=== PATIENT | female | born 1960 | race African-American/Black ===

== ENCOUNTER 2017-07-16 10:38 | Emergency (ER) | payer MEDICARE, MEDICAID ==
[2017-07-16 11:31] LABS: #Neutrophils 11.8 thou/uL (1.40-6.50); %Basophils 0.1 % (0.0-1.0); %Eosinophils 0.2 % (0.0-10.0); %Lymphocytes 13.5 % (21.0-51.0); %Monocytes 6.5 % (0.0-10.0); Hematocrit 44.2 % (36.0-47.0); Mean Platelet Volume 9.9 fL (7.4-10.4); Red Blood Cell (RBC) Count 4.62 mill/uL (4.20-5.40); White Blood Cell (WBC) Count 14.8 thou/uL (4.8-10.8)
[2017-07-16 11:53] LABS: Troponin I Less than 0.010 ng/mL (< 0.028)
[2017-07-16 11:54] LABS: ALT (SGPT) 14 U/L (8-55); AST (SGOT) 24 U/L (5-34); Alkaline Phosphatase 100 U/L (40-150); Anion Gap 14 mmol/L (10-20); BUN (Urea Nitrogen) 21 mg/dL (9.8-20.1); Bilirubin, Total 0.7 mg/dL (0.2-1.2); Calc. Creatinine Clearance 0 mL/min (70-130); Calcium 10.1 mg/dL (7.8-10.44); Carbon Dioxide 23 mmol/L (22-29); Chloride 105 mmol/L (98-107); Estimated GFR-MDRD 75; Globulin 4.3 g/dL (2.4-3.5); Lipase 7 U/L (8-78); Protein, Total 8.6 g/dL (6.0-8.3)
[2017-07-16] MEDS ORDERED: Fentanyl 100 MCG/2 ML VIAL ONE (12:04)
--- NOTE | 2017-07-16 13:11 | CT ---
CT ABDOMEN AND PELVIS WITHOUT CONTRAST: Technique: Multiple axial tomograms were obtained through the abdomen and pelvis without IV enhanceme nt. History: Left flank pain. Comparison: CT abdomen and pelvis, November 2003. FINDINGS: Lung bases clear. The liver, spleen, and pancreas unremarkable. Adrenal glands normal. There is left hydronephrosis. There is a calculus in the left mid left ureter. This may represent two adjacent small calculi. The current images show evidence of a separation or cleft. The current measu rement in the coronal plane is approximately 8 mm craniocaudal dimension. There is another smaller ca lculus in the left pelvis which lies adjacent to the distal left ureter. This is favored to lie outsi de the left ureter. This tiny calculus measures approximately 3 mm. The right kidney reveals a large calculus in the upper pole collecting structures measuring approxima tely 1.2 cm. There are at least two other calcifications in the upper pole collecting structures on t he right measuring approximately 5 mm. The right ureter appears normal. The small bowel loops are normal in appearance. Colon is unremarkable. Aorta is normal caliber. Image s through the pelvis reveal a prominent uterus. A uterine fibroid was described on the prior contrast ed scan. IMPRESSION: 1. Calculus in the mid left ureter producing left hydronephrosis. This may actually represent two adj acent smaller calculi, however, the overall measurement is 8 mm. 2. There are nonobstructing calculi in the upper collecting structures of the right kidney. POS: [facility]
--- NOTE | 2017-07-16 13:12 | RAD ---
PORTABLE CHEST: History: Abdominal pain. Comparison: 04-16-15 FINDINGS: The lungs are clear. Heart and mediastinum appear normal. Vascular markings normal. IMPRESSION: No acute finding. POS: [facility]
[2017-07-16] MEDS ORDERED: Ketorolac Tromethamine 30 MG/ML VIAL ONE (13:22)
[2017-07-16 13:36] LABS: Bilirubin Negative (Negative); Blood, Urine Moderate (Negative); Glucose, Urine (Dipstick) Negative (Negative); Ketone, Urine Trace mg/dL (Negative); Nitrite Negative (Negative); Protein, Urine (Dipstick) 300 mg/dL (Neg-Trace)
[2017-07-16 13:37] LABS: Bacteria/HPF 1+ HPF (None Seen); Hyaline Casts/LPF 0-3 HYALINE CAST LPF (0-3 Hyaline); RBC/HPF 21-50 HPF (0-3)
[2017-07-16] MEDS ORDERED: Dexamethasone 20 MG/5 ML VIAL ONE (15:21)
[2017-07-16] MEDS ORDERED: Propofol 200 MG/20 ML VIAL ONE (15:21)
[2017-07-16] MEDS ORDERED: Ondansetron HCl/PF 4 MG/2 ML Vial ONE (15:21)
--- NOTE | 2017-07-16 19:23 | CON ---
DATE OF CONSULTATION: 07/16/2017 REASON FOR CONSULTATION: Left-sided flank pain, right renal stone, left ureteral stone. HISTORY OF PRESENT ILLNESS: Mr. Mason is a 56-year-old female who presented to the emergency room w ith severe acute left-sided flank pain. She has a significant prior history including several stroke s. She has known hypertension. She was worked up for possible FL which did not demonstrate an FL. She underwent CT scanning which demonstrated a 1.2 cm stone in the right kidney and an 8 mm stone in the left mid ureter with left side hydronephrosis. However, pain was on the left side. She did have some nausea and vomiting. She did not have any fevers or chills. She denies any dysuria. She has not been treated for stones in the past. PAST MEDICAL HISTORY: Hypertension, hypercholesterolemia, CVA x3, obesity. PAST SURGICAL HISTORY: None. ALLERGIES: No known drug allergies. MEDICATIONS: Aspirin and clonidine 0.1 mg b.i.d. SOCIAL HISTORY: She drinks alcohol on a social basis. She denies drug use. She used to smoke cigar ettes, thus she states she quit smoking last year. REVIEW OF SYSTEMS: Respiratory: No shortness of breath. Cardiovascular: No chest pain. Gastrointestinal: Denies chr onic constipation, diarrhea. Genitourinary: Please see history of present illness. Neurologic: No recent alteration in sensation or any new signs of numbness. IMAGING STUDIES: CT scan demonstrates 1.2 cm stone in right renal pelvis, 8 mm stone in left mid ure ter. Laboratory urine reveals 4-6 red blood cells, 21-50 white blood cells. Creatinine 0.93. Sodiu m 138, potassium 4.3, chloride 105, CO2 of 23, BUN 21, creatinine 0.93, glucose 107. IMPRESSION: Ms. Mason is a 56-year-old female with bilateral stone disease. She has a left uretera l stone resulting in ureteral obstruction and left side hydronephrosis and pain. Recommend ureteral stenting to relieve obstruction of the left kidney. The procedure and potential limitations, alterna tives, and complications have been discussed with her. She does wish to proceed. PLAN: Cystoscopy and left double-J stent placement.
--- NOTE | 2017-07-16 21:32 | RAD ---
RETROGRADE UROGRAM 07/16/17 PROVIDED CLINICAL HISTORY: Renal stone. FINDINGS: Comparison CT examination earlier same date. Interval placement of a left ureteral stent. Proximal coil overlying expected location of the left re nal pelvis and distal coil overlying expected location of urinary bladder. Contrast material is seen within partially opacified left renal collecting system. Right renal calculus is again seen. IMPRESSION: As above. POS: [facility]
--- NOTE | 2017-07-16 21:50 | OP ---
DATE OF PROCEDURE: 07/16/2017 DIAGNOSES: Right renal stone and left ureteral stone. PROCEDURES PERFORMED: Cystoscopy, left double-J stent placement. SURGEON: Dr. Yoon. ANESTHESIA: General. INDICATIONS: Ms. Mason presented to the emergency room with a severe left-sided flank pain. Imagin g revealed a nonobstructing 12 mm right renal stone and a 7-8 mm obstructing left mid ureteral stone. She was brought to the operating room for left ureteral stent placement. DETAILS OF PROCEDURE: The patient was given general anesthesia and IV antibiotics. She was sterilel y prepped and draped in the lithotomy position. A cystoscope was passed into the bladder and the juni dder was examined in its entirety. There were no mucosal lesions. Both ureteral orifices appeared n ormal with clear efflux. Left ureteral orifice was intubated with a floppy tip guidewire, which pass ed cephalad under fluoroscopic control. Retrograde pyelography was performed demonstrating left mid ureteral stone. A guidewire was passed beyond the stone and the open-ended ureteral catheter was pas sed over the guidewire line. Contrast was injected in the pelvis after a urine sample was obtained f or culture. This highlighted the pelvis and then the guidewire was passed back through the open-ende d ureteral catheter. It was coiled in the left renal pelvis. A 6 x 24 double-J stent was passed ove r the guidewire and coiled in the left renal pelvis and in the bladder as confirmed fluoroscopically and cystoscopically. The patient tolerated the procedure well. She was transported from the operati ng room to recovery room in stable condition. COMPLICATIONS: None. ESTIMATED BLOOD LOSS: Minimal. DISPOSITION AND PLAN: Left ureteroscopy with laser lithotripsy and stone extraction and she may even tually be scheduled for ESWL; right renal stone.
== END 2017-07-16 14:56 | disposition admitted as inpatient to this hospital (09) ==
LOC: ERS 10:38
DX: N13.2 Hydronephrosis with renal and ureteral calculous obstruction (principal); E66.9 Obesity, unspecified; I10 Essential (primary) hypertension; Z79.82 Long term (current) use of aspirin; Z86.73 Personal history of transient ischemic attack (TIA), and cerebral infarction without residual deficits; Z87.891 Personal history of nicotine dependence
CPT/HCPCS: 71010; 74176; 74420; 80053; 81001; 82553; 83690; 84484; 85025; 87070; 87075; 87205; 93005; C1758; C1769; 96361; 96374; 96375; J1100; J1885; J2405; J2704; J3010

== ENCOUNTER 2017-09-20 06:43 | Observation (INO) | payer MEDICARE, MEDICAID ==
[2017-09-20 07:25] LABS: #Basophils 0.1 thou/uL (0.0-0.2); #Eosinphils 0.1 thou/uL (0.0-0.7); #Monocytes 0.7 thou/uL (0.11-0.59); #Neutrophils 5.9 thou/uL (1.40-6.50); %Basophils 0.6 % (0.0-1.0); %Eosinophils 1.4 % (0.0-10.0); %Lymphocytes 30.4 % (21.0-51.0); %Neutrophils 60.6 % (42.0-75.0); Hemoglobin 14.3 g/dL (12.0-16.0); Mean Corpuscular Hemoglobin 31.7 pg (27.0-31.0); Mean Corpuscular Volume 96.3 fl (81.0-99.0); Mean Platelet Volume 8.2 fL (7.4-10.4); Platelet Count 234 thou/uL (130-400); RBC Distribution Width 12.3 % (11.5-14.5); Red Blood Cell (RBC) Count 4.51 mill/uL (4.20-5.40); White Blood Cell (WBC) Count 9.7 thou/uL (4.8-10.8)
[2017-09-20] MEDS ORDERED: Pantoprazole 40 MG VIAL ONE (07:34)
[2017-09-20 07:42] LABS: CKMB 0.8 ng/mL (0-6.6); Troponin I 0.011 ng/mL (< 0.028)
--- NOTE | 2017-09-20 07:49 | RAD ---
PORTABLE CHEST 1 VIEW: Date: 09/20/17 Time: 0650 hours HISTORY: Chest pain. FINDINGS: Comparison made with exam of 07/16/17. The heart size is normal. No confluent areas of consolidation, pneumothorax, or pleural effusions are seen. IMPRESSION: No radiographic evidence of acute cardiopulmonary process. POS: [facility]
[2017-09-20 07:59] LABS: ALT (SGPT) 12 U/L (8-55); AST (SGOT) 12 U/L (5-34); Albumin 4.2 g/dL (3.5-5.0); Alkaline Phosphatase 90 U/L (40-150); Anion Gap 13 mmol/L (10-20); BUN (Urea Nitrogen) 23 mg/dL (9.8-20.1); Bilirubin, Total 0.8 mg/dL (0.2-1.2); Calc. Creatinine Clearance 0 mL/min (70-130); Carbon Dioxide 23 mmol/L (22-29); Chloride 108 mmol/L (98-107); Estimated GFR-MDRD Greater than 90; Globulin 3.6 g/dL (2.4-3.5); Glucose 108 mg/dL (70-105); Lipase 15 U/L (8-78); Magnesium 1.8 mg/dL (1.6-2.6); Potassium 3.6 mmol/L (3.5-5.1); Protein, Total 7.9 g/dL (6.0-8.3); Sodium 138 mmol/L (136-145)
[2017-09-20] MEDS ORDERED: HYDROcodone/Acetaminophen 5/325 mg Tablet ONE (08:21)
[2017-09-20] MEDS ORDERED: Nitroglycerin 0.4 MG TAB (25 Tab Bottle) ONE (09:21)
[2017-09-20 11:51] LABS: Troponin I 0.022 ng/mL (< 0.028)
[2017-09-20] MEDS ORDERED: Ondansetron HCl/PF 4 MG/2 ML Vial IVP PRN (12:32)
[2017-09-20] MEDS ORDERED: Ondansetron ODT 4 MG TAB SL PRN (12:32)
[2017-09-20 12:33] VITALS: BMI 31.1
[2017-09-20 13:55] LABS: Troponin I 0.022 ng/mL (< 0.028)
[2017-09-20] MEDS ORDERED: Acetaminophen 325 MG TAB PO PRN (14:58)
[2017-09-20] MEDS ORDERED: Nitroglycerin 0.4 MG TAB (25 Tab Bottle) PO PRN (14:58)
[2017-09-20] MEDS ORDERED: traMADol HCl 50 MG TAB PO PRN (15:03)
--- NOTE | 2017-09-20 15:40 | HP ---
DATE OF ADMISSION: 09/20/2017 CHIEF COMPLAINT: Chest pain. HISTORY OF PRESENT ILLNESS: This is a 57-year-old -Cym[place] female with a known history of re cent stroke in 2015 with left-sided stroke and persistent deficits. The patient has been having phys ical therapy at home since 2 years and because of the persistent weakness and problems in the gait. On Friday, she had a severe physical therapy workup and following which she started noticing pain on the left side of her chest and also on the left precordium. She was unable to confirm if pain was coming from the chest. She does complain of nausea occasionally, but no evidence of any dizziness o r palpitations was noted. When she presented to the ER, she had a thorough evaluation with EKG, whic h was unremarkable, which also reviewed by me. Patient had troponins which were persistently negativ e. Patient was tried on different pain medications, but only nitro helped for suspicion for cardiac ischemia as the patient has a known history of microvascular disease. The patient was admitted for [facility] evaluation. PAST MEDICAL HISTORY: 1. Obstructive sleep apnea. 2. Depression. 3. Hypertension. 4. Hyperlipidemia. 5. Rheumatoid arthritis. 6. History of cerebrovascular accident in 2014. PAST SURGICAL HISTORY: None. SOCIAL HISTORY: Patient is a not a nonsmoker. No history of alcohol, no history of illicit drug use . FAMILY HISTORY: No significant family history of coronary artery disease. Sister had stroke x3. REVIEW OF SYSTEMS: All 12 systems are reviewed with the patient thoroughly and found to be negative at this time. Systems reviewed are HEENT, CVS, TECHNOLOGY LEAD, respiratory, GI, . The following complete rev iew of systems was negative, unless otherwise mentioned in the HPI or below: Constitutional: Weight loss or gain, sense of well-being, ability to conduct usual activities, exerc ise tolerance. Skin/Breast: Rash, itching, changes in hair growth or loss, nail changes, breast lumps, tenderness, swelling, nipple discharge. Eyes: Vision, double vision, tearing, blind spots, pain. ENT/Mouth: Headaches (location, time of onset, duration, precipitating factors), vertigo, lightheade dness, injury. Vision, double vision, tearing, blind spots, pain, nose bleeding, colds, obstruction, discharge, dental difficulties, gingival bleeding, dentures, neck stiffness, pain, tenderness, masses in thyroid or other areas Cardiovascular: Precordial pain, substernal distress, palpitations, syncope, dyspnea on exertion, or thopnea, nocturnal paroxysmal dyspnea, edema, cyanosis, hypertension, heart murmurs, varicosities, ph lebitis, claudication. Respiratory: Pain, shortness of breath, wheezing, stridor, cough, hemoptysis, fever or night sweats Gastrointestinal: Poor appetite, dysphagia, indigestion, abdominal pain, heartburn, eructation, naus ea, vomiting, hematemesis, jaundice, constipation, or diarrhea, abnormal stools (han-colored, tarry, bloody, greasy, foul smelling), flatulence, hemorrhoids, recent changes in bowel habits. Genitourinary: Urgency, frequency, dysuria, nocturia, hematuria, polyuria, oliguria, unusual (or hazel nge in) color of urine, stones, hesitancy, change in size of stream, dribbling, acute retention or in continence, libido, potency. Musculoskeletal: Pain, swelling, redness or heat of muscles or joints, limitation, of motion, muscul ar weakness, atrophy, cramps. Neurologic/Psychiatric: Convulsions, paralyses, tremor, incoordination, paraesthesias, difficulties with memory of speech, sensory or motor disturbances, or muscular coordination (ataxia, tremor), emot ional problems, anxiety, depression, previous psychiatric care, unusual perceptions, hallucinations. Allergy/Immunologic: Skin rash, anemia, bleeding tendency, polydipsia, polyuria, intolerance to heat or cold. ALLERGIES: No known drug allergies. MEDICATIONS: Home medications have been reviewed. Aspirin 325 mg daily, atorvastatin 40 mg p.o. alejo ly, clonidine 0.5 mg daily, Lexapro 10 mg p.o. daily, and tramadol 50 mg p.o. b.i.d. IMAGING DATA: Chest x-ray is unremarkable. LABORATORY DATA: WBC 9.7, hemoglobin is 14.3, hematocrit 43.4, platelets 234. Sodium 130, potassium 3.6, chloride is 108, BUN is 23, AST 12, and ALT 12. ASSESSMENT: 1. Acute coronary syndrome. 2. History of cerebrovascular accident with persistent deficits on the left side. 3. Obstructive sleep apnea. 4. Hypertension. 5. Hyperlipidemia. 6. History of rheumatoid arthritis. PLAN: 1. Plan is to continue to monitor this patient with serial troponins and we will continue the patien t on aspirin, beta anjali, and statin. We will do a nuclear stress test in the morning as the patie nt is high risk with history of microvascular disease with history of stroke. 2. Patient has hypertension, well controlled. We will continue the patient on home medications. 3. The patient has a history of hyperlipidemia on atorvastatin. We will continue with this medicati on at this time. 4. The patient has history of cerebrovascular accident. We will continue with PT and OT while she i s in the hospital. 5. DVT prophylaxis, Lovenox 40 mg subcu daily. I spent 65 minutes with this patient.
[2017-09-20] MEDS: HYDROcodone/Acetaminophen 5/325 mg Tablet PO PRN ×2 (16:16→20:22)
[2017-09-20] MEDS: cloNIDine 0.1 MG TAB PO SCH (20:21)
[2017-09-20] MEDS: Carvedilol 3.125 MG TAB PO SCH (20:21)
[2017-09-20] MEDS: Famotidine/PF 20 mg/2ml Vial SLOW IVP SCH (20:23)
[2017-09-20] MEDS ORDERED: Atorvastatin Calcium 40 MG TAB PO SCH (21:00)
[2017-09-20] MEDS: Nitroglycerin 2% Ointment 1 INCH/1 GM Packet TOP SCH (21:14)
[2017-09-21] MEDS: Nitroglycerin 2% Ointment 1 INCH/1 GM Packet TOP SCH ×2 (05:39→14:38)
[2017-09-21 05:58] LABS: #Basophils 0.1 thou/uL (0.0-0.2); #Eosinphils 0.1 thou/uL (0.0-0.7); #Lymphocytes 3.1 thou/uL (1.20-3.40); #Monocytes 0.6 thou/uL (0.11-0.59); #Neutrophils 5.3 thou/uL (1.40-6.50); %Basophils 0.8 % (0.0-1.0); %Eosinophils 1.3 % (0.0-10.0); %Lymphocytes 34.1 % (21.0-51.0); %Monocytes 6.1 % (0.0-10.0); %Neutrophils 57.7 % (42.0-75.0); Hemoglobin 13.8 g/dL (12.0-16.0); Mean Corpuscular HGB CONC 31.7 g/dL (32.0-36.0); Mean Corpuscular Hemoglobin 30.8 pg (27.0-31.0); Mean Corpuscular Volume 97.3 fl (81.0-99.0); Mean Platelet Volume 8.5 fL (7.4-10.4); Platelet Count 224 thou/uL (130-400); RBC Distribution Width 12.5 % (11.5-14.5); Red Blood Cell (RBC) Count 4.49 mill/uL (4.20-5.40); White Blood Cell (WBC) Count 9.2 thou/uL (4.8-10.8)
[2017-09-21 06:06] LABS: Anion Gap 12 mmol/L (10-20); BUN (Urea Nitrogen) 23 mg/dL (9.8-20.1); Calc. Creatinine Clearance 109 mL/min (70-130); Calcium 9.8 mg/dL (7.8-10.44); Carbon Dioxide 25 mmol/L (22-29); Cardiac Risk 3.3 (Less than 4.5); Chloride 107 mmol/L (98-107); Cholesterol 100 mg/dl (< 200 Desired); Estimated GFR-MDRD 87; Glucose 121 mg/dL (70-105); HDL Cholesterol 30 mg/dL (>60 Neg Risk); LDL Cholesterol, Calculated 55 mg/dL; Potassium 3.8 mmol/L (3.5-5.1); Sodium 140 mmol/L (136-145); Triglycerides 74 mg/dL (Less than 150)
[2017-09-21] MEDS: Famotidine/PF 20 mg/2ml Vial SLOW IVP SCH (07:31)
[2017-09-21] MEDS: HYDROcodone/Acetaminophen 5/325 mg Tablet PO PRN ×2 (07:31→15:19)
[2017-09-21] MEDS: Carvedilol 3.125 MG TAB PO SCH (07:33)
[2017-09-21] MEDS: cloNIDine 0.1 MG TAB PO SCH (07:33)
[2017-09-21] MEDS ORDERED: Escitalopram Oxalate 10 mg Tablet PO SCH (09:00)
[2017-09-21] MEDS ORDERED: Enoxaparin Sodium 40 MG/0.4 ML SYRINGE SC SCH (09:00)
[2017-09-21] MEDS ORDERED: Aspirin 325 MG TAB PO SCH (09:00)
--- NOTE | 2017-09-21 12:40 | NM ---
CARDIAC SPECT: CLINICAL HISTORY: 57-year-old black female with chest pain and hypertension. Smoker. TECHNIQUE: A myocardial perfusion scan was performed using the single isotope one day protocol with technetium-9 9m sestamibi. 10 mCi were injected intravenously for the rest exam followed by 30 mCi for the stress exam. Pharmacologic stress with Adenosine was monitored and interpreted by Dr. Marquez. FINDINGS: A fixed defect is seen in the proximal inferior wall. No reversible defects are identified. GATED SPECT LVEF: 44%. WALL MOTION EXAM: Proximal inferior wall hypokinesis. IMPRESSION: No evidence of reversible ischemia. POS: [facility]
[2017-09-21] MEDS ORDERED: ADENOSINE 60 MG/20 ML VIAL ONE (13:00)
[2017-09-21 16:14] VITALS: TEMP 99
[2017-09-21 16:15] VITALS: BP 143/82
--- NOTE | 2017-09-22 09:37 | DIS ---
DATE OF ADMISSION: 09/20/2017 DATE OF DISCHARGE: 09/21/2017 ADMITTING DIAGNOSIS: Acute chest pain. DISCHARGE DIAGNOSIS: Acute chest pain, noncardiac. SECONDARY DIAGNOSES 1. Obstructive sleep apnea. 2. Depression. 3. Hypertension. 4. Hyperlipidemia. 5. Rheumatoid arthritis. 6. Congestive heart failure with no exacerbation with EF of 44%. HISTORY OF PRESENT ILLNESS AND HOSPITAL COURSE: In brief, this is a 57-year-old -Portuguese fem valerie with a known history of stroke in 2014 with left-sided persistent deficits. The patient has been having physical therapy at home since 2 years and was having persistent weakness and pain and was wylie ving some persistent pain in the left precordium likely associated with physical therapy, but because of her microvascular disease, the patient presented to the hospital for further evaluation of her ch est pain. Patient was monitored overnight with normal troponins. The patient had no evidence of any dizziness, palpitations overnight and no change in the EKG. Following morning, patient had a nuclea r stress test, which showed no reversible cardiac ischemia, but showed evidence of apical hypokinesis with EF of 44%. The patient was advised to start on beta-blockers and low dose lisinopril. I advis ed the patient to follow up with Cardiology in 1-2 weeks. The patient did not have any chest pains. On the day of discharge, her chest pain was more of musculoskeletal in nature and advised patient to take incentive spirometry to avoid any atelectasis. The patient is discharged home in stable condit ion. PHYSICAL EXAMINATION: On day of discharge. VITAL SIGNS: Blood pressure was 144/79, heart rate is 78, respiration is 18, saturation 94% on room air. GENERAL: The patient is moderately built and moderately nourished. She does not appear to be in acu te distress at this time. Alert and oriented x3. HEENT: Atraumatic, normocephalic. CARDIOVASCULAR: S1, S2 normal. No murmurs, rubs or gallops. LUNGS: Bilateral air entry was equal. No wheezing, no crackles. ABDOMEN: Soft, nontender. No guarding or rebound tenderness. Bowel sounds normal. DISCHARGE MEDICATIONS: All medications have been continued. Aspirin 325 mg p.o. daily, atorvastatin 40 mg p.o. daily, clonidine 0.5 mg p.o. b.i.d., Lexapro 10 mg p.o. daily, tramadol 50 mg p.o. b.i.d. for pain. NEW MEDICATIONS: Coreg 3.125 mg p.o. b.i.d., lisinopril 2.5 mg p.o. daily. DISCHARGE INSTRUCTIONS: 1. Continue activity as tolerated. 2. Advised to follow up with Cardiology in 1-2 weeks. 3. Advised to follow up with primary care physician in 2 weeks. 4. Continue with cardiac diet. 5. Advised to go to the ER if the patient develops any persistent chest pains with any change in sym ptoms. The patient is discharged home. I spent 35 minutes for this patient on the day of discharge.
--- NOTE | 2017-09-27 15:04 | EKG ---
Test Reason : Blood Pressure : / mmHG Vent. Rate : 087 BPM Atrial Rate : 087 BPM P-R Int : 154 ms QRS Dur : 086 ms QT Int : 358 ms P-R-T Axes : 046 030 000 degrees QTc Int : 430 ms Normal sinus rhythm Normal ECG Confirmed by ROSINA FAJARDO ([id number]), supervising editor trailer PRABHJOT REEVES ([id number]) on 09/27/2017 3:03:38 PM Referred By: Confirmed By:ROSINA FAJARDO
--- NOTE | 2017-10-06 14:07 | STRESS ---
Acquisition Time: 2017-09-21 09:30:56 Total Exercise Time: 00:03:25 Test Indications: CHEST PAIN Medications: Protocol: ADENOSINE Max HR: 087 BPM 53% of Pred: 163 BPM Max BP: 116/082 mmHG Max Work Load: 1.0 METS RESTING ECG: NORMAL SINUS RHYTHM SYMPTOMS: CHEST PAIN NORMAL BP RESPONSE ECTOPY: NONE ECG STRESS: NO SIGNIFICANT CHANGES INTERPRETATION: NEGATIVE ECG Confirmed by DR. Elmer STATON ([id number]), legal editor ML RASCON ([id number]) on 10/06/2017 2:06:31 PM Referred By: MD Yoana VILLAFUERTE Confirmed By:DR. Elmer STATON
== END 2017-09-21 17:22 | disposition home or self-care (01) ==
LOC: ERS 06:43 → 2SW 12:19
PROVIDERS: ADMIT Family Medicine; ATTEND Family Medicine
DX: R07.89 Other chest pain (principal); G47.33 Obstructive sleep apnea (adult) (pediatric); F32.9 Major depressive disorder, single episode, unspecified; E78.5 Hyperlipidemia, unspecified; M06.9 Rheumatoid arthritis, unspecified; I11.0 Hypertensive heart disease with heart failure; I50.9 Heart failure, unspecified; Z79.899 Other long term (current) drug therapy; Z86.73 Personal history of transient ischemic attack (TIA), and cerebral infarction without residual deficits
CPT/HCPCS: 71045; 78452; 80048; 80053; 80061; 82553; 83690; 83735; 83880; 84484 ×2; 85025 ×2; 85379; 93005; 93017; 93306; 94760 ×2; 96374; 97139; 99285; A9500; G8978; G8979; G8980; 36415; 36416; C9113; J0153; J1650; S0028

== ENCOUNTER 2019-01-21 22:17 | Emergency (ER) | payer MEDICARE, MEDICAID ==
[2019-01-21 22:42] LABS: #Basophils 0.1 thou/uL (0.0-0.2); #Eosinphils 0.1 thou/uL (0.0-0.7); #Lymphocytes 3.4 thou/uL (1.20-3.40); #Monocytes 0.8 thou/uL (0.11-0.59); #Neutrophils 8.5 thou/uL (1.40-6.50); %Basophils 0.5 % (0.0-1.0); %Eosinophils 0.9 % (0.0-10.0); %Lymphocytes 26.5 % (21.0-51.0); %Monocytes 6.1 % (0.0-10.0); %Neutrophils 65.9 % (42.0-75.0); Hemoglobin 13.4 g/dL (12.0-16.0); Mean Corpuscular HGB CONC 32.5 g/dL (32.0-36.0); Mean Corpuscular Hemoglobin 30.7 pg (27.0-31.0); Mean Corpuscular Volume 94.4 fL (78.0-98.0); Mean Platelet Volume 8.5 fL (7.4-10.4); Platelet Count 195 thou/uL (130-400); RBC Distribution Width 12.7 % (11.5-14.5); Red Blood Cell (RBC) Count 4.39 mill/uL (4.20-5.40); White Blood Cell (WBC) Count 12.9 thou/uL (4.8-10.8)
[2019-01-21 23:02] LABS: Bilirubin Negative (Negative); Blood, Urine Large (Negative); Glucose, Urine (Dipstick) Negative (Negative); Leukocyte Small (Negative); Nitrite Negative (Negative); Protein, Urine (Dipstick) 100 mg/dL (Neg-Trace)
[2019-01-21 23:04] LABS: ALT (SGPT) 16 U/L (8-55); AST (SGOT) 13 U/L (5-34); Albumin 4.2 g/dL (3.5-5.0); Alkaline Phosphatase 84 U/L (40-150); Anion Gap 13 mmol/L (10-20); BUN (Urea Nitrogen) 20 mg/dL (9.8-20.1); Bilirubin, Total 0.4 mg/dL (0.2-1.2); Calc. Creatinine Clearance 0 mL/min (70-130); Carbon Dioxide 24 mmol/L (22-29); Chloride 106 mmol/L (98-107); Estimated GFR-MDRD 87; Globulin 3.4 g/dL (2.4-3.5); Glucose 98 mg/dL (70-105); Potassium 4.1 mmol/L (3.5-5.1); Protein, Total 7.6 g/dL (6.0-8.3); Sodium 139 mmol/L (136-145)
[2019-01-21 23:07] LABS: Clarity Hazy (Clear)
[2019-01-21 23:08] LABS: RBC/HPF 21-50 HPF (0-3)
[2019-01-21 23:09] LABS: Bacteria/HPF Rare-Few HPF (None Seen); Squamous Epithelial 0-3 HPF (0-3)
[2019-01-21 23:12] LABS: Hyaline Casts/LPF NONE SEEN LPF (0-3 Hyaline)
--- NOTE | 2019-01-21 23:42 | CT ---
CT abdomen and pelvis with IV contrast HISTORY: Left abdominal pain. COMPARISON: 07/16/2017. FINDINGS: Lung bases are clear. Left ureteral stent is in place. Significant distention of the left r enal collecting system is again demonstrated, although there is symmetric enhancement of the left kidney compared to the right. A stone lies immediately adjacent to the left ureteral stent at the lev el of the mid ureter. This is where the stone was present the 2017 exam. Calcifications within the nondilated right renal collecting system are again demonstrated, measuring up to 1.2 cm at the anterior aspect of the kidney. Right renal cysts are apparent. Calcified granuloma at the mediastinum is consistent with healed granulomatous disease. There is calc ification within the arterial structures. Diverticula arise from the colon without adjacent inflammation. Fibroid involvement of the uterus. IMPRESSION: While left hydronephrosis persists, the overall picture is not suggestive of ongoing obst ruction. Left ureteral stent is in place and favored to be functioning normally. Mid left ureteral calculus is similar in position to the prior study from 2017. Nonobstructing right renal calculi. Fibroid involvement of the uterus. Atherosclerosis. Diverticulosis. No evidence of diverticulitis.
[2019-01-21] MEDS ORDERED: Acetaminophen 325 MG TAB ONE (23:56)
== END 2019-01-22 00:07 | disposition home or self-care (01) ==
LOC: ERS 22:17
DX: R10.9 Unspecified abdominal pain (principal); E78.5 Hyperlipidemia, unspecified; I10 Essential (primary) hypertension; E66.9 Obesity, unspecified; F17.210 Nicotine dependence, cigarettes, uncomplicated; Z86.73 Personal history of transient ischemic attack (TIA), and cerebral infarction without residual deficits
CPT/HCPCS: 36415; 74177; 80053; 81003; 81015; 85025

== ENCOUNTER 2019-08-02 13:13 | Inpatient (IN) | payer MEDICARE, MEDICAID ==
--- NOTE | 2019-08-02 13:59 | RAD ---
Exam: Chest one view HISTORY:Mild stroke last week. Speech issues. Comparison: 09/20/2017 FINDINGS: Cardiac silhouette:Upper normal cardiac silhouette. Aorta: Unremarkable Pulmonary vessels: Normal Costophrenic angles: Clear LUNGS: No masses or consolidation. Chronic lung parenchymal changes. Pneumothorax: None Osseous abnormalities: Remote injury to the mid right clavicle. IMPRESSION: No acute cardiopulmonary process.
[2019-08-02 14:11] LABS: #Eosinphils 0.1 thou/uL (0.0-0.7); #Lymphocytes 2.8 thou/uL (1.20-3.40); #Monocytes 0.5 thou/uL (0.11-0.59); #Neutrophils 6.2 thou/uL (1.40-6.50); %Basophils 0.2 % (0.0-1.0); %Eosinophils 1.1 % (0.0-10.0); %Lymphocytes 29.1 % (21.0-51.0); %Neutrophils 64.6 % (42.0-75.0); Mean Corpuscular HGB CONC 32.1 g/dL (32.0-36.0); Mean Corpuscular Hemoglobin 30.4 pg (27.0-31.0); Mean Corpuscular Volume 94.6 fL (78.0-98.0); Mean Platelet Volume 8.7 fL (7.4-10.4); Platelet Count 212 thou/uL (130-400); RBC Distribution Width 12.4 % (11.5-14.5); Red Blood Cell (RBC) Count 4.62 mill/uL (4.20-5.40); White Blood Cell (WBC) Count 9.6 thou/uL (4.8-10.8)
[2019-08-02 14:18] LABS: Prothrombin Time 12.7 SEC (12.0-14.7)
[2019-08-02 14:22] LABS: PTT 20.5 SEC (22.9-36.1)
[2019-08-02 14:38] LABS: ALT (SGPT) 14 U/L (8-55); AST (SGOT) 13 U/L (5-34); Albumin 4.1 g/dL (3.5-5.0); Alkaline Phosphatase 93 U/L (40-110); Anion Gap 11 mmol/L (10-20); BUN (Urea Nitrogen) 14 mg/dL (9.8-20.1); Bilirubin, Total 0.4 mg/dL (0.2-1.2); Calc. Creatinine Clearance 0 mL/min (70-130); Calcium 9.4 mg/dL (7.8-10.44); Carbon Dioxide 26 mmol/L (22-29); Chloride 108 mmol/L (98-107); Estimated GFR-MDRD Greater than 90; Globulin 3.7 g/dL (2.4-3.5); Glucose 119 mg/dL (70-105); Potassium 3.8 mmol/L (3.5-5.1); Protein, Total 7.8 g/dL (6.0-8.3); Sodium 141 mmol/L (136-145)
--- NOTE | 2019-08-02 14:40 | CT ---
CT head noncontrast HISTORY: Altered mental status. COMPARISON: 04/16/2015. FINDINGS: There is no evidence of acute intracranial hemorrhage. Focal areas of encephalomalacia and gliosis throughout each cerebral hemisphere are again demonstrated, progressing slightly since the prior exam. Small bilobed focus of decreased density within the upper medial aspect of the right cere bellar hemisphere has developed and is favored to represent an old infarct also. Septum pellucidum is midline. No mass effect. Visualized paranasal sinuses remain well aerated. IMPRESSION: Evidence of prominent small vessel disease and other chronic-type findings, with multiple old infarcts apparent. No acute intracranial abnormalities are demonstrated.
--- NOTE | 2019-08-02 15:28 | PDOC.FPRHP ---
- History of Present Illness Chief Complaint: slurred speech History of Present Illness: Patient is a 58F with PMHx of HLD, RA, HFpEF, HTN, and ischemic CVA with residual L-sided deficits that presents with slurred speech that started on Friday and she noticed when she woke up. Pt states she "had a stroke." She states difficulty with speech was her only deficit. Pt states she is having trouble speaking the words, but is having clear thoughts to form the words. No difficulty swallowing, no choking on food. No trouble breathing. Pt has L-sided residual deficits from an old CVA 3 years ago. She has decreased strength and paresthesias on the left upper and lower extremities. Was treated here at [facility] for this CVA. Pt was convinced to come in to the ER today because her daughter made her come in to be evaluated. Reports speech worsening, though no changes in swallowing or breathing. C/o CP that started on R upper chest, sharp in character. Started when she got to the ED. First time to experience this type of CP. Denies N/V/D/Abd pain. Pt states she usually walks on her own with assistance from a cane. PCP: Dr. Marsh ED Course: Head CT: no acute process, evidence of old infarcts. Given ASA - Allergies/Adverse Reactions Allergies Allergy/AdvReac Type Severity Reaction Status Date / Time No Known Allergies Allergy Verified 04/16/15 15:44 - Home Medications Medication Instructions Recorded Confirmed Type Lisinopril 10 mg PO DAILY 08/02/19 08/02/19 History Aspirin 325 mg PO DAILY #30 tab 08/03/19 Rx Atorvastatin Calcium [Lipitor] 80 mg PO HS #60 tab 08/03/19 Rx Clopidogrel Bisulfate [Plavix] 75 mg PO DAILY #90 tab 08/03/19 Rx - History PMHx: HLD, HTN, and ischemic CVA with residual L-sided deficits, RA PSHx: R leg fracture fixation FHx: Sister: CVA, Brother: CVA, Father: CVA Social: uses tobacco occasionally, cigarettes once every 2 days. Admits to smoking for about 30 years. Denies drug or etoh use. - Review of Systems General: denies: fever/chills, weight/appetite/sleep changes Eyes: denies: eye pain, vision changes ENT: denies: nasal congestion, rhinorrhea Respiratory: denies: cough, shortness of breath Cardiovascular: reports: chest pain (sharp R-sided) Gastrointestinal: denies: nausea, vomiting, diarrhea Genitourinary: denies: incontinence, polyuria Skin: denies: rashes, jaundice Musculoskeletal: denies: pain, tenderness Neurological: reports: numbness (lower left leg), weakness (residual left arm and leg weakness) Psychological: denies: anxiety, depression - Vital signs BP: [142/82] HR: [87] RR: [16] Tmax: [97.8F] Pox: [99]% on [RA] Wt: [97.52kg] - Physical Exam Constitutional: NAD, awake, alert and oriented HEENT: normocephalic and atraumatic, EOMI Neck: supple, FROM Chest: no-tender to palpation, no lesions Heart: RRR, normal S1/S2, no murmurs/rubs/gallops, pulses present Lungs: CTAB, no respiratory distress, good air movement, no rales/rhonchi, no wheezing, no retractions Abdomen: soft, non-tender, bowel sounds present Musculoskeletal: normal structure, normal tone -Musculoskeletal: decreased upward motion left arm -Neurological: L sided facial droop with right tongue deviation. Intact gag reflex. Weakness to left shoulder raise. 3/5 strength in LUE, 2/5 strength L foot. 5/5 strength in flexion to BLE's. Decreased sensation to L plantar surface of foot and L outer thigh. Decreased sensation to L hand. Repeats back no ifs, ands or buts. Slurred speech. R sided heel to martell and finger to nose intact. Heel to martell and finger to nose not intact on L side. Oriented to person, place, situation. Disoriented to time, except 2019. NIH 9 Skin: no rash/lesions, good turgor, capillary refill <2 seconds Heme/Lymphatic: no unusual bruising or bleeding, no purpura, no petechia Psychiatric: normal mood and affect FMR H&P: Results - Labs Result Diagrams: 08/02/19 13:55 08/02/19 13:55 Lab results: WBC 9.6 thou/uL (4.8-10.8) 08/02/19 13:55 Hgb 14.0 g/dL (12.0-16.0) 08/02/19 13:55 Hct 43.7 % (36.0-47.0) 08/02/19 13:55 MCV 94.6 fL (78.0-98.0) 08/02/19 13:55 Plt Count 212 thou/uL (130-400) 08/02/19 13:55 Neutrophils % 64.6 % (42.0-75.0) 08/02/19 13:55 Sodium 141 mmol/L (136-145) 08/02/19 13:55 Potassium 3.8 mmol/L (3.5-5.1) 08/02/19 13:55 Chloride 108 mmol/L (98-107) H 08/02/19 13:55 Carbon Dioxide 26 mmol/L (22-29) 08/02/19 13:55 BUN 14 mg/dL (9.8-20.1) 08/02/19 13:55 Creatinine 0.76 mg/dL (0.6-1.1) 08/02/19 13:55 Glucose 119 mg/dL (70-105) H 08/02/19 13:55 Calcium 9.4 mg/dL (7.8-10.44) 08/02/19 13:55 Total Bilirubin 0.4 mg/dL (0.2-1.2) 08/02/19 13:55 AST 13 U/L (5-34) 08/02/19 13:55 ALT 14 U/L (8-55) 08/02/19 13:55 Alkaline Phosphatase 93 U/L (40-110) 08/02/19 13:55 Serum Total Protein 7.8 g/dL (6.0-8.3) 08/02/19 13:55 Albumin 4.1 g/dL (3.5-5.0) 08/02/19 13:55 - EKG Interpretation EKG: Normal sinus rhythm - Radiology Interpretation CT scan - head Status: report reviewed by me (prominent small vessel disease with multiple old infarcts; No acute intracranial abnormalities) FMR H&P: A/P - Problem List (1) Dysarthria Current Visit: Yes Status: Acute Code(s): R47.1 - DYSARTHRIA AND ANARTHRIA (2) Left arm weakness Current Visit: Yes Status: Chronic Code(s): R29.898 - OTH SYMPTOMS AND SIGNS INVOLVING THE MUSCULOSKELETAL SYSTEM (3) Left leg weakness Current Visit: Yes Status: Chronic Code(s): R29.898 - OTH SYMPTOMS AND SIGNS INVOLVING THE MUSCULOSKELETAL SYSTEM (4) CVA, old, facial weakness Current Visit: No Status: Chronic Code(s): I69.392 - FACIAL WEAKNESS FOLLOWING CEREBRAL INFARCTION (5) HLD (hyperlipidemia) Current Visit: No Status: Chronic Code(s): E78.5 - HYPERLIPIDEMIA, UNSPECIFIED (6) HTN (hypertension) Current Visit: No Status: Chronic Code(s): I10 - ESSENTIAL (PRIMARY) HYPERTENSION (7) Rheumatoid arthritis Current Visit: Yes Status: Chronic Code(s): M06.9 - RHEUMATOID ARTHRITIS, UNSPECIFIED (8) Diastolic dysfunction Current Visit: Yes Status: Chronic Code(s): I51.89 - OTHER ILL-DEFINED HEART DISEASES - Plan Patient is a 58F with PMHx of HTN, HLD, HFpEF, RA, prior ischemic CVA with residual left-sided arm and leg weakness and left facial droop that is admitted for TIA/Stroke workup #TIA/Stroke -chronic left facial droop, left arm and leg weakness, left leg sensory deficits -dysarthria started on Friday, reportedly has worsened today -gag reflex intact -denies trouble breathing -MRI brain and CTA head/neck in am -echo 2018: EF 55-60% with diastolic dysfunction, will repeat echo -EKG: NSR -risk stratify: FLP, TSH, A1C pending -will talk with cardiology in am for halter monitor #Atypical chest pain -right sided chest pain began when she came to the ED, likely anxiety related -described as sharp -initial trop 0.023, will trend trops -EKG: NSR, no ST elevation #HTN -symptoms started last Friday, out of window for permissive HTN -continue home meds #HLD -continue home meds -FLP in am #RA -continue home meds #HFpEF -echo 2018: EF 55-60% with diastolic dysfunction, will repeat echo -repeat echo pending DVT ppx: SCDs Dispo: stroke obs for TIA/Stroke workup Code: Full PCP: Dr. Marsh FMR H&P: Upper Level - Pertinent history 58 yo F here with complaint of slurred speech and word finding difficultly since 07/30. She presented today at the request of her daughter for evaluation. She has a hx of previous CVA with L sided foot weakness and LLE numbness. Today she notes stable to possibly worsening symptoms of issues with word finding. She denies other symptoms such as difficulty swallowing, MCKEON, changes in vision, palpitations, CP, or new peripheral deficits PMHx: HTN, HLD, hx of CVA, RA, HFpEF? PSHx: R LE ORIF FHx: Paternal CVA, brother CVA, sister CVA Social: smokes every other day, denies etoh, denies drugs - Pertinent findings See international first officer note for full ROS, PE, vitals, and labs ROS Gen denies fever or chills CV Denies CP or palpitations. Resp Denies SOB and cough GI denies n/v/d/c denies dysuria, frequency, urgency Neuro Complains of word finding difficulty and slurred speech. Denies new extremity weakness or numbness PE General A&O x4 HEENT NCAT CV RRR, no murmur Resp CTA Abd No distension or tenderness Extremities no edema Neuro Slurred speech, difficulty finding words at times. Decreased strength with L foot dorsiflexion and plantar flexion. Decreased sensation lateral L LE - Plan Date/Time: 08/02/19 1526 I, Vineet Romeo, , have evaluated this patient and agree with findings/plan as outlined by international first officer resident. Pertinent changes/additions are listed here. 1.CVA vis TIA -Admit to stroke obs -MRI, CTA [place], echo -TSH, A1c, Lipid 2.HTN -Home meds 3.HLD -Increase Lipitor to 80mg 4.RA -Unknown if she is taking DMARDs, will contact PCP/pharmacy to get better med list PPx SCD Diet HH Code Full Dispo: Stable. Would expect observation period of 1-2 days . Addendum - Attending - Attending Attestation Date/Time: 08/02/19 3240 I personally evaluated the patient and discussed the management with Dr. Valentino and Agueda I agree with the History, Examination, Assessment and Plan documented above with any addition or exceptions noted below. Dysarthria since Friday in patient with previous R MCA CVA. CT negative for remote lesions. Will consider MRI in AM. Increase to high dose statin. Extensive family hx. Will need home event monitor for A. fib. Discuss antiplatelet options with patient. Has been on ASA. Will order ECHO for EF due to hx of HF with pEF. Monitor overnight for events. Mitchel
[2019-08-02] MEDS ORDERED: Aspirin Chewable 81 MG TAB ONE ×2 (15:48→16:10)
[2019-08-02] MEDS ORDERED: Iopamidol-370 76% 500 ML 1 ML ONE (16:04)
[2019-08-02] MEDS ORDERED: Acetaminophen 325 MG TAB PO PRN (16:30)
[2019-08-02] MEDS ORDERED: Magnevist 469MG/ML 20 ML VIAL ONE (16:34)
[2019-08-02 18:16] LABS: Troponin I Less than 0.010 ng/mL (< 0.028)
--- NOTE | 2019-08-02 18:47 | CT ---
CT ANGIOGRAM HEAD WITH IV CONTRAST AND 3D RECONSTRUCTIONS: CT ANGIOGRAM NECK WITH IV CONTRAST AND 3D RECONSTRUCTIONS: HISTORY: Dysarthria. Slurred speech for four days. COMPARISON: CTA head from 06/10/2012. FINDINGS: There is suboptimal timing of the contrast bolus. Minimal vascular calcifications are seen in the aor tic arch. There is a normal arrangement of the great vessels at the aortic arch which are patent. The bilateral subclavian arteries as well as the innominate artery do appear patent. The bilateral common carotid arteries are patent. The bilateral internal and external carotid arterie s also appear patent. The bilateral vertebral arteries are patent and codominant. The basilar artery as well as the posterior cerebral arteries are patent bilaterally. No high-grade s tenosis is seen involving either posterior cerebral artery. The proximal left posterior cerebral horacio ry is slightly smaller in caliber, but this is stable when compared to the prior exam and may be deve lopmental. The bilateral anterior cerebral and middle cerebral arteries demonstrate no high-grade stenosis or oc clusion. No focal aneurysm is seen within the limitations of the technique of this exam. As noted on the prior noncontrasted CT exam on this date, there are multifocal areas of encephalomala lane and findings related to chronic small vessel ischemic changes. Areas of encephalomalacia are most compatible with multifocal areas of remote infarction. There is mild nonspecific prominence of the adenoids but this is stable compared to the study in 2012 . There is scattered atelectasis within the upper lung zones bilaterally. IMPRESSION: 1. No high grade stenosis or occlusion identified involving the [place] or vertebrobasilar c istern. 2. Patent bilateral internal carotid arteries as well as patent bilateral vertebral arteries. POS: REYNA
--- NOTE | 2019-08-02 19:42 | MRI ---
MRI BRAIN WITH AND WITHOUT IV CONTRAST: HISTORY: Dysarthria. Speech difficulties. History of prior strokes. COMPARISON: MRI brain on 04/17/2015. FINDINGS: Multifocal scattered areas of encephalomalacia and gliosis are again seen in each cerebral hemisphere , most likely attributable to remote areas of infarction. Again noted is increased FLAIR and T2 weigh asiya signal intensity seen within the periventricular and subcortical white matter, likely attributabl e to chronic small vessel ischemic changes, minimally progressed when compared to prior exam. There a re multiple areas of restricted diffusion seen within the medial and superior aspect of the right cer ebellar hemisphere, compatible with acute infarctions in the right cerebellar hemisphere with a tiny linear focus of restricted diffusion seen in the right occipital lobe, also suggestive of a tiny acut e infarction. There is a small area of enhancement seen in the posterior aspect of the right occipital lobe with th e area of enhancement seen in the region of restricted diffusion, suggesting that this area of infarc tion is likely more subacute in origin. No other abnormal areas of enhancement are appreciated. There is mild cerebral volume loss. The ventricular system is normal in size, shape and position for the degree of sulcal atrophy. Appropriate flow voids are demonstrated at the base of the brain. IMPRESSION: 1. Small acute to early subacute right cerebellar infarctions with a subacute infarction in the right occipital lobe. 2. Multifocal areas of encephalomalacia and gliosis seen throughout the cerebral hemispheres bilatera lly, which have minimally progressed from the prior study in 2014. 3. Remote infarctions in each cerebellar hemisphere also present on prior examination. The above findings were discussed with Dr. Newby in the emergency department on 08/02/2019 at 1909 hours. CODE CR POS: MING
[2019-08-02] MEDS: Atorvastatin Calcium 40 MG TAB PO SCH (21:43)
[2019-08-02 23:30] VITALS: BMI 35.0
--- NOTE | 2019-08-03 05:32 | PDOC.FM ---
- Subjective Subjective: Patient doing well this morning. Denies any new symptoms; continues to have dysarthria. Discussed the MRI findings and plan of care of adding plavix to her medication regimen. Patient agreeable with plan of care. Denies any further cp, sob. - Objective Vital Signs & Weight: Vital Signs (12 hours) Temp Pulse Resp BP BP Pulse Ox 08/03/19 04:00 98.1 F 91 20 136/71 98 08/02/19 23:28 99 F 78 20 188/90 H 98 Weight Weight 98.43 kg Result Diagrams: 08/02/19 13:55 08/02/19 13:55 EKG Reviewed by me: Yes (sinus 70s-80s) Phys Exam - Physical Examination Constitutional: NAD HEENT: moist MMs, sclera anicteric Neck: supple, full ROM Respiratory: no wheezing, clear to auscultation bilateral Cardiovascular: RRR, no significant murmur Gastrointestinal: soft, non-tender Musculoskeletal: no edema, pulses present Neurological: moves all 4 limbs decreased movement L arm and leg, dysarthria Psychiatric: normal affect, A&O x 3 Skin: no rash, normal turgor Dx/Plan (1) Dysarthria Code(s): R47.1 - DYSARTHRIA AND ANARTHRIA Status: Acute (2) Left arm weakness Code(s): R29.898 - OTH SYMPTOMS AND SIGNS INVOLVING THE MUSCULOSKELETAL SYSTEM Status: Chronic (3) Left leg weakness Code(s): R29.898 - OTH SYMPTOMS AND SIGNS INVOLVING THE MUSCULOSKELETAL SYSTEM Status: Chronic (4) CVA, old, facial weakness Code(s): I69.392 - FACIAL WEAKNESS FOLLOWING CEREBRAL INFARCTION Status: Chronic (5) HLD (hyperlipidemia) Code(s): E78.5 - HYPERLIPIDEMIA, UNSPECIFIED Status: Chronic (6) HTN (hypertension) Code(s): I10 - ESSENTIAL (PRIMARY) HYPERTENSION Status: Chronic (7) Rheumatoid arthritis Code(s): M06.9 - RHEUMATOID ARTHRITIS, UNSPECIFIED Status: Chronic (8) Diastolic dysfunction Code(s): I51.89 - OTHER ILL-DEFINED HEART DISEASES Status: Chronic - Plan Plan: Patient is a 58F with PMHx of HTN, HLD, HFpEF, RA, prior ischemic CVA with residual left-sided arm and leg weakness and left facial droop that is admitted for TIA/Stroke workup #R cerebellar CVA -chronic left facial droop, left arm and leg weakness, left leg sensory deficits -dysarthria started on Friday, reportedly has worsened -gag reflex intact -denies trouble breathing -MRI brain: -small acute to early subacute right cerebellar infarctions seen with a subacute infarction R occipital lobe -multifocal areas of encephalomalacia and gliosis seen throughout the cerebral hemispheres bilaterally which have minimally progressed from study in 2015 -remote infarctions in each cerebellar hemisphere that were also present on prior exam -CTA head/neck: negative for stenosis -echo 2018: EF 55-60% with diastolic dysfunction, repeat echo pending -EKG: NSR -risk stratify: -FLP:triglycerides 86, total chol 91, LDL 37, HDL 37 -TSH: 1.386 -A1C: 6.0 -Telemetry: NSR overnight -neurology consult today, appreciate recs #Atypical chest pain, resolved -right sided chest pain began when she came to the ED, likely anxiety related -described as sharp -trop 0.023 > < 0.01 -EKG: NSR, no ST elevation #HTN -symptoms started last Friday, out of window for permissive HTN -continue home meds #HLD -continue home meds -FLP in am #RA -continue home meds #HFpEF -echo 2018: EF 55-60% with diastolic dysfunction, will repeat echo -repeat echo pending DVT ppx: SCDs Dispo: stroke obs for TIA/Stroke workup, neurology consult today, appreciate recs Code: Full PCP: Dr. Marsh
[2019-08-03 05:33] LABS: Cardiac Risk 2.5 (Less than 4.5)
[2019-08-03] MEDS ORDERED: Clopidogrel Bisulfate 300 MG TAB PO SCH (08:15)
[2019-08-03] MEDS ORDERED: Aspirin 325 mg Enteric Coated Tablet PO SCH ×2 (09:00→21:00)
[2019-08-03] MEDS ORDERED: FLU VACC QS2019-20(6MOS UP)/PF 60 MCG/0.5 ML SYRINGE IM ONE (09:00)
[2019-08-03] MEDS: Lisinopril 10 MG TAB PO SCH (09:19)
--- NOTE | 2019-08-03 10:59 | PRG ---
DATE OF SERVICE: 08/03/2019 ADDENDUM: Please add this as an addendum to the note of Dr. Monserrat Valentino. I have examined Ms. Mason and discussed the case with Dr. Monserrat Valentino. I agree with her assessment and plan. Ms. Mason is a pleasant 58-year-old black female patient with a previous history of CVA as well as hypertension. She began having slurred speech and left-sided weakness last Friday, but did not immediately seek medical attention. She was brought in by her family yesterday for possible stroke. Her brain MRI did in fact show a small acute to early subacute right cerebellar infarction seen with a subacute infarction in the right occipital lobe. There are multifocal areas of encephalomalacia and gliosis seen throughout the cerebral hemispheres bilaterally which have minimally progressed from the prior study of 2014. There are remote infarctions in each cerebellar hemisphere also present. The patient obviously was too late for a tPA and is currently on a regimen to control blood pressure, aspirin, and a statin. Clinically, she is improved somewhat. Her labs were basically unremarkable. Her troponins were less than 0.01. Lipids, her triglycerides were 86, cholesterol 91, LDL was 37, HDL 37 with a TSH of 1.386. We will continue to monitor blood pressure and continue to give her secondary preventive medications. Job ID: [id number]
[2019-08-03] MEDS ORDERED: Lidocaine 1% w/Epinephrine 1:100K 20 ML VIAL ONE (12:40)
--- NOTE | 2019-08-03 13:28 | CON ---
DATE OF CONSULTATION: 08/03/2019 REASON FOR CONSULTATION: Recurrent strokes of unknown etiology for monitoring. HISTORY OF PRESENT ILLNESS: Ms. Mason is a 58-year-old woman. She has had multiple episodes of strokes as is outlined in the chart. Admitted again with one additional stroke. The etiology of the strokes is unknown. The patient was seen in [address] Sams. At that time, it was thought that was at least her third episode of strokes if not further. She also had a sister, who had multiple strokes. The etiology of the strokes has never been ascertained. She was readmitted on this occasion and was found to have evidence of additional strokes. We have been asked to see her about further monitoring. She has decreased strength and paresthesias in left upper and lower extremities. She also had additional speech problems on this admission. Imaging revealed no obstruction to any of the major vascular beds. Brain MRI revealed small acute early subacute right cerebellar infarctions. Also subacute infarction right occipital lobe. Past history negative for cardiac symptoms in terms of chest pain or pressure. She has not had palpitations. REVIEW OF SYSTEMS: CONSTITUTIONAL: No significant weight gain or loss. VISION: No changes. HEARING: No changes. PULMONARY: No cough or wheezing. GASTROINTESTINAL: No nausea, vomiting, or diarrhea. SKIN: No rashes. NEUROLOGIC: No unilateral weakness or numbness. PSYCHIATRIC: No unusual depression or anxiety. SOCIAL HISTORY: Occasional tobacco, cigarettes once every two days. No drugs or alcohol. PHYSICAL EXAMINATION: GENERAL: This is a pleasant 58-year-old woman, in no distress. VITAL SIGNS: Blood pressure 139/65 and pulse 80 and it is regular. LUNGS: Clear. CARDIAC: Normal S1. Normal S2. ABDOMEN: Soft and nontender. EXTREMITIES: No clubbing or cyanosis. There is no edema. LABORATORY DATA: EKG reveals sinus rhythm. Echocardiogram done on 09/16/2017, ejection fraction 55% to 60%. Normal echo. ASSESSMENT: 1. Recurrent strokes of unknown etiology. 2. History of high cholesterol, being treated. 3. Hypertension, being treated. 4. No evidence of any obstructive vascular disease. PLAN: It is reasonable to proceed with a LINQ insertion. Discussed risks including bleeding or infection and removal of device. Discussed the other alternative of 21 to 30-day monitoring, but that may well not be conclusive. She prefers to have the device implanted. Job ID: [id number]
[2019-08-03] MEDS: Atorvastatin Calcium 40 MG TAB PO SCH (22:20)
--- NOTE | 2019-08-03 23:00 | CON ---
DATE OF CONSULTATION: 08/03/2019 IMPRESSION: 1. Right posterior cerebral artery stroke with cerebellar and occipital lobe damage resulting in secondary dysarthria. 2. Aspirin failure. PLAN: Continue Plavix along with her current medications. HISTORY OF PRESENT ILLNESS: Ms. Mason is a 58-year-old black female, who came in with complaints of dysarthria. Initial CT scans did not reveal any acute changes. Her CT angiogram showed a clear major vessel and carotid flow pattern. Her MRI subsequently revealed a right cerebellar and occipital infarct. Her echocardiogram shows a 55% to 60% ejection fraction. She reports being on aspirin and a statin prior to her stroke. PAST MEDICAL HISTORY: Hypertension, hyperlipidemia. SOCIAL HISTORY: She denies alcohol use and drug use. She is a cigarette smoker. ALLERGIES: NONE. MEDICATION LIST: Reviewed. REVIEW OF SYSTEMS: Ten-system review of systems is otherwise negative. PHYSICAL EXAMINATION: GENERAL: She is a well-nourished, middle-aged woman, in no acute distress. VITAL SIGNS: Initial vital signs showed a blood pressure of 143/115, pulse 124, respirations 17. She is afebrile. HEENT: Pupils equal and reactive. Conjunctivae clear. Oropharynx clear. Cranium, normocephalic and atraumatic. NECK: Supple. EXTREMITIES: No cyanosis or edema. NEUROLOGIC: She is alert and cooperative. Her speech was fluent, but moderately dysarthric. There was no appreciable facial asymmetry. No visual field deficit was elicited. Motor exam shows equal strength. Sensation is equal to touch. She can walk independently. IMAGING: EKG shows a sinus rhythm. LABORATORY DATA: Laboratory studies were reviewed. SUMMARY: This is a middle-aged woman with acute thrombus in the right posterior cerebral artery territory. I agree with your current management. I would be happy to follow up with her as an outpatient. Job ID: [id number]
--- NOTE | 2019-08-04 05:44 | PDOC.FM ---
- Subjective Subjective: Patient doing well this morning. Did well with LINQ insertion yesterday. Discussed that PT is to work with her today for rehab recommendations, and then likely d/c home today. Patient agreeable with plan of care. - Objective Vital Signs & Weight: Vital Signs (12 hours) Temp Pulse Resp BP Pulse Ox 08/04/19 04:00 98.7 F 93 16 114/69 97 08/04/19 00:00 98.6 F 94 16 127/83 97 08/03/19 21:35 96 08/03/19 20:00 98.8 F 96 16 115/65 97 Weight Weight 98.43 kg I&O: 08/02/19 08/03/19 08/04/19 06:59 06:59 06:59 Intake Total 300 480 Balance 300 480 Result Diagrams: 08/02/19 13:55 08/02/19 13:55 EKG Reviewed by me: Yes (Sinus 70s-100s, PVCs) Phys Exam - Physical Examination Constitutional: NAD HEENT: moist MMs, sclera anicteric Neck: supple, full ROM Respiratory: no wheezing, clear to auscultation bilateral Cardiovascular: RRR, no significant murmur Gastrointestinal: soft, non-tender Musculoskeletal: no edema, pulses present dysarthria, decreased movement of left arm and leg; chronic Psychiatric: normal affect, A&O x 3 Skin: no rash, normal turgor Dx/Plan (1) Dysarthria Code(s): R47.1 - DYSARTHRIA AND ANARTHRIA Status: Acute (2) Left arm weakness Code(s): R29.898 - OTH SYMPTOMS AND SIGNS INVOLVING THE MUSCULOSKELETAL SYSTEM Status: Chronic (3) Left leg weakness Code(s): R29.898 - OTH SYMPTOMS AND SIGNS INVOLVING THE MUSCULOSKELETAL SYSTEM Status: Chronic (4) CVA, old, facial weakness Code(s): I69.392 - FACIAL WEAKNESS FOLLOWING CEREBRAL INFARCTION Status: Chronic (5) HLD (hyperlipidemia) Code(s): E78.5 - HYPERLIPIDEMIA, UNSPECIFIED Status: Chronic (6) HTN (hypertension) Code(s): I10 - ESSENTIAL (PRIMARY) HYPERTENSION Status: Chronic (7) Rheumatoid arthritis Code(s): M06.9 - RHEUMATOID ARTHRITIS, UNSPECIFIED Status: Chronic (8) Diastolic dysfunction Code(s): I51.89 - OTHER ILL-DEFINED HEART DISEASES Status: Chronic - Plan Plan: Patient is a 58F with PMHx of HTN, HLD, HFpEF, RA, prior ischemic CVA with residual left-sided arm and leg weakness and left facial droop that is admitted for TIA/Stroke workup #R cerebellar CVA -chronic left facial droop, left arm and leg weakness, left leg sensory deficits -dysarthria started on Friday, reportedly has worsened -gag reflex intact -denies trouble breathing -MRI brain: -small acute to early subacute right cerebellar infarctions seen with a subacute infarction R occipital lobe -multifocal areas of encephalomalacia and gliosis seen throughout the cerebral hemispheres bilaterally which have minimally progressed from study in 2015 -remote infarctions in each cerebellar hemisphere that were also present on prior exam -CTA head/neck: negative for stenosis -echo 2018: EF 55-60% with diastolic dysfunction -repeat echo 08/03/19: EF 55-60%, E/A flow reversal noted suggestive of diastolic CHF, LVH -EKG: NSR -risk stratify: -FLP:triglycerides 86, total chol 91, LDL 37, HDL 37 -TSH: 1.386 -A1C: 6.0 -Telemetry: NSR overnight -neurology consult today, Dr. Petersen recommends continuing current treatment plan -Cardiology, Dr. Marquez, consulted 08/03/19, LINQ inserted to monitor for arrythmias outpatient #Atypical chest pain, resolved -right sided chest pain began when she came to the ED, likely anxiety related -described as sharp -trop 0.023 > < 0.01 -EKG: NSR, no ST elevation #HTN -symptoms started last Friday, out of window for permissive HTN -continue home meds #HLD -continue home meds -FLP in am #RA -continue home meds #HFpEF -echo 2018: EF 55-60% with diastolic dysfunction -repeat echo 08/03/19: EF 55-60%, E/A flow reversal noted suggestive of diastolic CHF, LVH DVT ppx: SCDs Dispo: stroke floor for CVA workup, LINQ inserted; PT to evaluate today for rehab recs and will have CM f/u for rehab referral vs home with HH; possible d/ c today Code: Full PCP: Dr. Marsh
[2019-08-04] MEDS ORDERED: Clopidogrel Bisulfate 75 MG TAB PO SCH (09:00)
[2019-08-04] MEDS: Lisinopril 10 MG TAB PO SCH (09:15)
--- NOTE | 2019-08-04 09:19 | PRG ---
DATE OF SERVICE: 08/04/2019 SUBJECTIVE: Ms. Mason is doing fine today. No complaints. She had successful LINQ insertion yesterday. OBJECTIVE: VITAL SIGNS: Her blood pressure is 139/66, pulse is 98, is sinus. ASSESSMENT: 1. Repetitive and recurrent strokes of unknown etiology. 2. Status post LINQ procedure. The patient can see us in the office in about 3 weeks. She has a device to take home with her. Just monitor to see if she has any evidence of atrial fibrillation. Job ID: [id number]
--- NOTE | 2019-08-04 11:25 | PRG ---
DATE OF SERVICE: 08/04/2019 ADDENDUM: This is an addendum to the note of Dr. Monserrat Valentino. I have discussed the case with Dr. Valentino and I agree with her assessment and plan. Ms. Mason is looking and feeling fine this morning. She did have CVA and we are continuing her on aspirin and atorvastatin as well as blood pressure control. We also consulted Dr. Marquez to consider the possibility of an event recorder, Holter monitor to rule out arrhythmia as a cause of a possible stroke as her CTA of the head and neck were negative. He was in agreement and this is being arranged. Afterwards, she can be discharged for outpatient followup. Job ID: [id number]
[2019-08-04 15:48] VITALS: BP 110/59; TEMP 98.2
--- NOTE | 2019-08-06 09:51 | DIS ---
DATE OF ADMISSION: 08/02/2019 DATE OF DISCHARGE: 08/04/2019 ADMITTING RESIDENT: Monserrat Valentino MD ADMITTING ATTENDING: Andre Gannon MD DISCHARGE RESIDENT: Monserrat Valentino MD DISCHARGE ATTENDING: Donny Polanco MD CONSULTS: PT, OT, Speech, Neurology (Dr. Petersen), Cardiology (Dr. Marquez), Case Management. PROCEDURE: LINQ recorder insertion. IMAGING DATA: Brain MRI: Small acute to early subacute right cerebellar infarction with a subacute infarction in the right occipital lobe. Multifocal areas of encephalomalacia and gliosis seen throughout the cerebral hemispheres bilaterally, which have minimally progressed from the prior study in 2015. Remote infarction in each cerebellar hemisphere also present on prior examination. Chest x-ray: No acute cardiopulmonary process. Brain CT: Evidence of prominent small-vessel disease and other chronic type finding, with multiple old infarcts appearance. No acute intracranial abnormalities were demonstrated. CT angiography: No high-grade stenosis or occlusion identified involving the quechan of [place] or vertebrobasilar system. Patent bilateral internal carotid arteries as well as patent bilateral vertebral arteries. Echocardiogram: EF of 55% to 60%. Mild concentric LVH. E/A flow reversal is noted. Suggestive of diastolic dysfunction. Left atrium is mildly dilated. Trace mitral regurgitation. Structurally normal aortic valve with no significant stenosis or regurgitation. PRIMARY DIAGNOSES: 1. Right cerebellar CVA. 2. Atypical chest pain. SECONDARY DIAGNOSES: 1. Hypertension. 2. Hyperlipidemia. 3. Rheumatoid arthritis. 4. Heart failure with preserved ejection fraction. HISTORY OF PRESENT ILLNESS/HOSPITAL COURSE: The patient is a 58-year-old female with past medical history of hyperlipidemia, RA, preserved ejection fraction, heart failure, hypertension, and past CVA with residual left-sided deficits, who presented with a slurred speech that started a few days previously. She denied any difficulties with swallowing or breathing.. Imaging was done, see above. She was admitted to the stroke floor for further imaging and CVA workup. Brain MRI did show a subacute right cereellar stroke, the patient was started on Plavix and Neurology was consulted. Neurology then recommended continued aspirin and Plavix as dual therapy at this time. As this is at least the second stroke the patient has had, there was concern for possible arrhythmia that may be causing these strokes, but CTA did not show any significant stenosis. The patient was continuously monitored on telemetry, but did not have any arrhythmia. Cardiology was consulted to insert a loop recorder to monitor for any arrhythmias on an outpatient basis. The patient was also risk stratified and was found to have an A1C of 6.0, normal cholesterol and TSH. She also has a repeat echo that was consistent with diastolic dysfunction, see above. The patient also presented to the ER with some atypical chest pain that was right sided and most likely anxiety related. She was continuously monitored on telemetry, no ST elevation was noted. She was also found to have negative troponins. On the day of discharge, the patient was evaluated and found to be in stable condition. I discussed with her that she would have new medications to go home with and to follow up with her primary care provider, and she was also instructed to follow up with Dr. Marquez for findings of her LINQ recorder. DISPOSITION: Stable. DISCHARGE INSTRUCTIONS: 1. Location: Home. 2. Diet: Heart healthy. 3. Activity: As tolerated. 4. Followup: Follow up with Dr. Marsh within 7 days. It should be noted that the patient also was evaluated by PT/OT, who recommended home health with outpatient PT and OT. Case Management arranged for her to have home health provided outpatient and the patient was agreeable. Job ID: [id number] MTDD
== END 2019-08-04 17:07 | disposition home or self-care (01) | DRG 41 ==
LOC: ERS 13:13 → OBSVTOIN 16:56 → ERHOLD 16:56 → 2SE 23:19
PROVIDERS: ADMIT Emergency Medicine; ATTEND Emergency Medicine
PROC: 0JH632Z Insertion of Monitoring Device into Chest Subcutaneous Tissue and Fascia, Percutaneous Approach (ICD-10-PCS; principal; 2019-08-03)
DX: I63.331 Cerebral infarction due to thrombosis of right posterior cerebral artery (principal); I69.354 Hemiplegia and hemiparesis following cerebral infarction affecting left non-dominant side; I50.32 Chronic diastolic (congestive) heart failure; I11.0 Hypertensive heart disease with heart failure; E78.5 Hyperlipidemia, unspecified; M06.9 Rheumatoid arthritis, unspecified; F17.210 Nicotine dependence, cigarettes, uncomplicated; R47.81 Slurred speech; R40.2362 Coma scale, best motor response, obeys commands, at arrival to emergency department; R40.2142 Coma scale, eyes open, spontaneous, at arrival to emergency department; R40.2252 Coma scale, best verbal response, oriented, at arrival to emergency department; R29.709 NIHSS score 9; R47.1 Dysarthria and anarthria; R07.89 Other chest pain; E78.00 Pure hypercholesterolemia, unspecified
CPT/HCPCS: 33285; 36415; 36416; 70450; 70496; 70498; 70553; 71045; 80053; 80061; 83036; 84443; 84484; 85025; 85610; 85730; 90471; 90686; 90732; 93005; 93306; A9579; C1764; G0008; G0009; Q9967

== ENCOUNTER 2020-06-06 15:34 | Emergency (ER) | payer MEDICARE, OTHER ==
[2020-06-06 16:57] LABS: #Eosinphils 0.1 thou/uL (0.0-0.7); #Lymphocytes 2.2 thou/uL (1.20-3.40); #Monocytes 0.7 thou/uL (0.11-0.59); %Basophils 0.4 % (0.0-1.0); %Eosinophils 0.9 % (0.0-10.0); %Lymphocytes 19.9 % (21.0-51.0); %Monocytes 5.9 % (0.0-10.0); Hemoglobin 14.7 g/dL (12.0-16.0); Mean Corpuscular HGB CONC 32.5 g/dL (32.0-36.0); Mean Corpuscular Hemoglobin 31.5 pg (27.0-31.0); Mean Corpuscular Volume 96.9 fL (78.0-98.0); Mean Platelet Volume 8.3 fL (7.4-10.4); Platelet Count 237 thou/uL (130-400); RBC Distribution Width 12.4 % (11.5-14.5); Red Blood Cell (RBC) Count 4.67 mill/uL (4.20-5.40)
[2020-06-06 17:17] LABS: ALT (SGPT) 18 U/L (8-55); AST (SGOT) 17 U/L (5-34); Albumin 4.3 g/dL (3.5-5.0); Alkaline Phosphatase 88 U/L (40-110); Anion Gap 14 mmol/L (10-20); BUN (Urea Nitrogen) 16 mg/dL (9.8-20.1); Bilirubin, Total 0.7 mg/dL (0.2-1.2); Calc. Creatinine Clearance 0 mL/min (70-130); Calcium 10.3 mg/dL (7.8-10.44); Carbon Dioxide 25 mmol/L (22-29); Chloride 106 mmol/L (98-107); Estimated GFR-MDRD Greater than 90; Glucose 97 mg/dL (70-105); Potassium 3.7 mmol/L (3.5-5.1); Protein, Total 8.3 g/dL (6.0-8.3); Sodium 141 mmol/L (136-145)
[2020-06-06 19:04] LABS: Bacteria/HPF 4+ HPF (None Seen); Bilirubin Negative (Negative); Blood, Urine 3+ (Negative); Clarity Extra Turbid (Clear); Glucose, Urine (Dipstick) Normal (Negative); Ketone, Urine Negative (Negative); Leukocyte 500 Leu/uL (Negative); Nitrite Negative (Negative); Protein, Urine (Dipstick) 100 mg/dL (Neg-Trace); RBC/HPF Greater than 50 HPF (0-3); Specific Gravity, Urine 1.017 (1.002-1.036); Squamous Epithelial 0-3 HPF (0-3); Urobilinogen Normal mg/dL (Less than 2); WBC/HPF Greater than 50 HPF (0-3)
[2020-06-06] MEDS ORDERED: cefTRIAXone\\ROCEPHIN 1 GM VIAL ONE (19:22)
[2020-06-06] MEDS ORDERED: Lidocaine 1% PF 5 ML VIAL ONE (19:23)
== END 2020-06-06 19:58 | disposition home or self-care (01) ==
LOC: ERS 15:34
DX: N39.0 Urinary tract infection, site not specified (principal); E78.5 Hyperlipidemia, unspecified; E78.00 Pure hypercholesterolemia, unspecified; Z86.73 Personal history of transient ischemic attack (TIA), and cerebral infarction without residual deficits; E66.9 Obesity, unspecified; F17.210 Nicotine dependence, cigarettes, uncomplicated
CPT/HCPCS: 36415; 80053; 81003; 81015; 85025; 87077; 87086; 87186; 96372; 99284; J0696

== ENCOUNTER 2020-08-03 09:37 | Outpatient (CLI) | payer MEDICARE, MEDICAID ==
[2020-08-04 05:03] LABS: SARS-CoV-2 MS2 Positive; SARS-CoV-2 N Gene Positive; SARS-CoV-2 S Gene Negative; SARS-CoV-2 by NAA DETECTED (NotDetected); SARS-CoV-2 orf1ab Positive
== END 2020-08-03 09:38 | disposition home or self-care (01) ==
LOC: LABBT 09:37
PROVIDERS: ATTEND Urology
DX: U07.1 COVID-19 (principal); Z01.812 Encounter for preprocedural laboratory examination; N20.0 Calculus of kidney; Z96.0 Presence of urogenital implants
CPT/HCPCS: 87635; U0003

== ENCOUNTER 2020-08-22 06:33 | Day surgery (SDC) | payer MEDICARE, MEDICAID ==
[2020-08-22] MEDS ORDERED: Levofloxacin 500 mg/D5W 100 ml Premix Bag ONE (07:39)
[2020-08-22] MEDS ORDERED: Iothalamate Meglumine 60% 50 ML VIAL FS ONE (08:01)
[2020-08-22] MEDS ORDERED: Fentanyl 100 MCG/2 ML VIAL ONE ×2 (09:20→09:36)
[2020-08-22] MEDS ORDERED: Phenazopyridine HCl 100 MG TAB ONE (09:28)
[2020-08-22] MEDS ORDERED: Oxybutynin 5 MG TAB ONE (09:28)
[2020-08-22] MEDS ORDERED: Lidocaine 1% PF 5 ML VIAL ONE (09:44)
[2020-08-22] MEDS ORDERED: Ondansetron PF 4 MG/2 ML Vial ONE (09:44)
[2020-08-22] MEDS ORDERED: Glycopyrrolate 0.2 MG/ML 5 ML SYRINGE ONE (09:44)
[2020-08-22] MEDS ORDERED: PHENYLEPHRINE-NS 100 MCG/ML 10 ML SYRINGE ONE (09:44)
[2020-08-22] MEDS ORDERED: Ketorolac Tromethamine 30 MG/ML VIAL ONE (09:44)
[2020-08-22] MEDS ORDERED: PROPOFOL 200 MG/20 ML VIAL ONE (09:44)
[2020-08-22] MEDS ORDERED: Dexamethasone 20 MG/5 ML VIAL ONE (09:44)
--- NOTE | 2020-08-22 09:49 | OP ---
DATE OF PROCEDURE: 08/22/2020 PREOPERATIVE DIAGNOSES: Retained left ureteral stent, left ureteral stone, right renal stone. POSTOPERATIVE DIAGNOSES: Retained left ureteral stent with bladder stone, left ureteral stone, right renal stone, right calyceal diverticulum. PROCEDURES PERFORMED: Cystoscopy with laser of encrusted stent with bladder stone, left ureteroscopy with basket extraction of stone, left ureteral stent exchange 6 x 24 with string, right ureteroscopy with laser of renal stone, bilateral retrograde pyelogram with intraoperative interpretation of radiologic imaging, and right ureteral stent placement 6 x 24 with strings. ANESTHESIA: General. COMPLICATIONS: None. ESTIMATED BLOOD LOSS: Minimal. SPECIMEN: Ureteral stone fragments. DESCRIPTION OF PROCEDURE: After informed consent, the patient was taken to the operating room, transferred to the table. Anesthesia was established. A time-out was performed, showing the correct patient, site, and procedure. Preoperative antibiotics were administered. She was prepped and draped in the lithotomy position. The rigid cystoscope was advanced through the urethra into the bladder. The indwelling left ureteral stent was identified and noted to have significant stone burden preventing uncurling of the stent for adequate removal. A 273 micron laser fiber was used to trim the stone off the intravesical portion of the stent, allowing it to unfurl. The stent was then able to be removed with a grasper. A wire was then passed and the semi-rigid ureteroscope passed into the left ureter noting a stone in the mid to distal ureter, which was removed with a basket. The scope was passed all the way up to the proximal ureter noting no further stone fragments or abnormalities. The retrograde pyelogram was performed showing hydronephrosis with no filling defects. The scope was withdrawn and a 6 x 24 double-J ureteral stent was passed over the wire with a curl in the kidney and curl in the bladder under fluoroscopic guidance. Strings were left attached. I then reinserted the cystoscope and was able to find the right ureteral orifice with some difficulty given the bullous edema of the trigone. The wire was passed into the renal pelvis and an access sheath placed over this into the proximal ureter again under fluoroscopic guidance. Retrograde pyelogram was performed through this showing good filling of the proximal ureter and renal pelvis without filling defect. The stone seen on CT was also visible on the commercial finance analyst image in a lateral upper pole calyx. The flexible ureteroscope was passed through the access sheath into the renal pelvis, where a small stone was encountered in a mid pole calyx. This was treated with a 273 micron laser fiber and removed with a basket. The entirety of the collecting system was examined without identifying the large stone seen on CT and commercial finance analyst image. Fluoroscopy was used to navigate directly over the stone with no stone visible indicating that this is likely in a calyceal diverticulum with stenotic infundibulum. Given that this was not communicating with the collecting system, I elected to leave the stone in place. The scope and access sheath were withdrawn leaving a wire in place. A 6 x 24 double-J ureteral stent was passed over the wire with a curl in the kidney and curl in the bladder under fluoroscopic guidance. String was left attached. Both strings were taped to the patient's thigh with a Tegaderm. Her bladder was emptied. She was awoken from anesthesia, transferred back to her hospital bed, and taken to PACU in stable condition, where she was discharged home upon recovery. Job ID: [id number]
--- NOTE | 2020-08-22 11:12 | RAD ---
Exam: Intraoperative fluoroscopy for retrograde IVP HISTORY: Bilateral stent placement FINDINGS: Single fluoroscopic view demonstrates a left or right ureteral stent, appropriately positio n. There is a small amount contrast in the right intrarenal collecting system. There is a moderate amount of contrast in a distended left intrarenal collecting system IMPRESSION: Fluoroscopy as above
== END 2020-08-22 11:20 | disposition home or self-care (01) ==
LOC: SDC 06:33
PROVIDERS: ATTEND Urology
PROC: 0TC48ZZ Extirpation of Matter from Left Kidney Pelvis, Via Natural or Artificial Opening Endoscopic (ICD-10-PCS; principal; 2020-08-22)
PROC: 0TC38ZZ Extirpation of Matter from Right Kidney Pelvis, Via Natural or Artificial Opening Endoscopic (ICD-10-PCS; 2020-08-22)
PROC: 0T788DZ Dilation of Bilateral Ureters with Intraluminal Device, Via Natural or Artificial Opening Endoscopic (ICD-10-PCS; 2020-08-22)
DX: N13.2 Hydronephrosis with renal and ureteral calculous obstruction (principal); N28.89 Other specified disorders of kidney and ureter; Z79.84 Long term (current) use of oral hypoglycemic drugs; Z79.899 Other long term (current) drug therapy; Z86.16 Personal history of COVID-19; Z96.0 Presence of urogenital implants
CPT/HCPCS: 74420; 82365; 88300; J1100; J1885; J1956; J2405; J2704; J3010

== ENCOUNTER 2021-01-06 01:45 | Emergency (ER) | payer MEDICARE, MEDICAID ==
[2021-01-06] MEDS ORDERED: Ketorolac Tromethamine 30 MG/ML VIAL ONE (03:25)
[2021-01-06] MEDS ORDERED: Ondansetron ODT 8 MG TAB ONE (03:25)
== END 2021-01-06 04:14 | disposition home or self-care (01) ==
LOC: ERS 01:45
DX: R11.2 Nausea with vomiting, unspecified (principal); R19.7 Diarrhea, unspecified; M79.10 Myalgia, unspecified site; I10 Essential (primary) hypertension; E78.5 Hyperlipidemia, unspecified; Z86.73 Personal history of transient ischemic attack (TIA), and cerebral infarction without residual deficits
CPT/HCPCS: 96372; 99283; J1885; Q0162